=== PATIENT | female | born 1955 | race Caucasian/White ===

== ENCOUNTER 2021-11-01 15:23 | Outpatient (CLI) | payer MEDICARE, SELFPAY | END 2021-11-01 23:59 | disposition home or self-care (01) | LOC: LABSPEC 16:02 | PROVIDERS: Visit Provider Podiatrist | DX: L97.912 Non-pressure chronic ulcer of unspecified part of right lower leg with fat layer exposed (principal) | CPT/HCPCS: 87070; 87077; 87186; 87205 ==